=== PATIENT | male | born 1990 | race African-American/Black ===

== ENCOUNTER 2017-09-30 18:13 | Emergency (ER) | payer MEDICAID, OTHER ==
[~2017-09-30] VITALS: Ht 188 cm; Wt 98.0 kg
[2017-09-30 18:16] VITALS: BP 121/79
== END 2017-09-30 19:04 | disposition home or self-care (01) ==
LOC: ED 18:45
DX: K04.7 Periapical abscess without sinus (principal); K02.9 Dental caries, unspecified; J45.909 Unspecified asthma, uncomplicated
CPT/HCPCS: 99283